=== PATIENT | male | born 1980 | race Caucasian/White ===

== ENCOUNTER 2016-07-03 20:09 | Emergency (ER) | payer OTHER ==
[~2016-07-03] VITALS: Ht 180.3 cm; Wt 98.0 kg
[~2016-07-03 20:09] MED LIST: EFF/375 PO; FURO-85 PO; MULT-220 PO
[2016-07-03 20:18] VITALS: Ht 180.3 cm; Wt 98.0 kg
[2016-07-03 21:47] LABS: HEMATOCRIT 42.7 % (42-52); MEAN CELL VOLUME 80.6 fL (80-100); MEAN CORPUSCULAR HEMOGLOBIN 29.1 pg (25-34); MEAN CORPUSCULAR HGB CONC 36.1 g/dl (32-36); MEAN PLATELET VOLUME 9.7 fL (7.4-10.4); PLATELET COUNT 273 K/uL (130-400); WHITE BLOOD COUNT 10.09 K/uL (4.8-10.8)
[2016-07-03 22:06] LABS: ALT/SGPT 51 U/L (12-78); BLOOD UREA NITROGEN 18 mg/dl (7-18); BUN/CREATININE RATIO 21.3 (10-20); CARBON DIOXIDE 26 mmol/L (21-32); CHLORIDE 105 mmol/L (98-107); CREATININE 0.84 mg/dl (0.60-1.40); GLUCOSE 91 mg/dl (70-99); POTASSIUM 3.9 mmol/L (3.5-5.1); SODIUM 140 mmol/L (136-145)
[2016-07-03 22:08] LABS: ACETAMINOPHEN < 2 ug/ml (10-30)
[2016-07-03] MEDS ORDERED: VENL150C56 PO (22:08)
[2016-07-03] MEDS ORDERED: FAMO20TA11 PO (22:08)
[2016-07-03] MEDS ORDERED: EFFSR75 PO (22:08)
[2016-07-03] MEDS ORDERED: LAMO25TA PO (22:08)
[2016-07-03 22:09] LABS: ALKALINE PHOSPHATASE 75 U/L (45-117); AST/SGOT 26 U/L (15-37)
--- NOTE | 2016-07-03 22:54 | EMERGENCY ROOM VISIT NOTE ---
History Report prepared by Mook: Brooklynn Tay Under the Supervision of: Dr. Lazarus Peacock M.D. First contact with patient: 20:51 Chief Complaint: MENTAL HEALTH EVALUATION Stated Complaint: MENTAL HEALTH EVAL History of Present Illness The patient is a 35 year old male who presents to the Emergency Room for a mental health evaluation for constant suicidal thoughts beginning 10 days ago. Per nursing staff the patient was accepted at the [facility] and they do not need medical clearance. She states that they were not able to arrange transport so he has arrived here for transport to the [facility]. The patient states that he has been having suicidal thoughts for the last 10 days. He reports that the holidays trigger this and his plan was to take his bottle of Trazodone pills, walk out in front of traffic, or slit his wrists. His family and his niece is the reason that he is trying to get help. He reports that he has been hospitalized for suicidal thoughts and depression 1 year ago after he got brain surgery around [facility]. He notes that he had a paternity test that came back negative a while ago and things have been hard since then. The patient states that he does not drink or do drugs. The patient denies any fever. He notes that he has hydrocephalus that was treated. Source of History: patient Onset: 10 days ago Position: other (mental health ) Quality: other (suicidal thoughts) Timing: constant Modifying Factors (Worsening): other (holidays) Associated Symptoms: No fevers Review of Systems See HPI for pertinent positives & negatives. A total of 10 systems reviewed and were otherwise negative. Past Medical & Surgical Medical Problems: (1) Cholecystitis (2) Hydrocephalus Family History No pertinent family history stated. Social History Smoking Status: Current Every Day Smoker Alcohol Use: none Drug Use: none Marital Status: single Housing Status: lives with family Occupation Status: employed Current/Historical Medications Scheduled Famotidine (Pepcid), 2 TAB PO BID Lamotrigine (Lamictal), 3 TAB PO BID Multiple Vitamins W/ Minerals (Multi For Him), 1 TAB PO DAILY Venlafaxine Hcl (Effexor Extended Rel), 75 MG PO QAM Venlafaxine Hcl (Effexor Extended Rel), 150 MG PO QAM Allergies Coded Allergies: No Known Allergies (Unverified , 07/03/16) Physical Exam Vital Signs Date Time Temp Pulse Resp B/P Pulse Ox O2 Delivery O2 Flow Rate FiO2 07/03/16 20:30 89 20 155/89 98 07/03/16 20:18 89 20 155/89 98 Room Air Physical Exam Constitutional: Vital signs reviewed. Eyes: Pupils are equal round reactive to light. Conjunctiva are noninjected. ENT: Pharynx is clear without erythema or exudate. Mucous membranes are moist. Neck supple without meningeal signs. Respiratory: Clear to auscultation bilaterally. Breath sounds are equal bilaterally. Cardiovascular: Regular rate and rhythm. No rubs or gallops. GI: Soft, nondistended and nontender. Bowel sounds are present. Musculoskeletal: No peripheral edema. No lacerations to the wrist. Integumentary: No cyanosis. Neurological: The patient is awake and alert. No focal deficits. Psychiatric: Depressed affect. Medical Decision & Procedures Laboratory Results 07/03/16 21:35 07/03/16 21:35 Test 07/03/16 21:35 Red Blood Count 5.30 M/uL (4.7-6.1) Mean Corpuscular Volume 80.6 fL (80-100) Mean Corpuscular Hemoglobin 29.1 pg (25-34) Mean Corpuscular Hemoglobin Concent 36.1 g/dl (32-36) RDW Standard Deviation 39.1 fL (36.4-46.3) RDW Coefficient of Variation 13.3 % (11.5-14.5) Mean Platelet Volume 9.7 fL (7.4-10.4) Anion Gap 9.0 mmol/L (3-11) Est Creatinine Clear Calc Drug Dose 147.8 ml/min Estimated GFR () 132.4 Estimated GFR (Non- 114.2 BUN/Creatinine Ratio 21.3 (10-20) Calcium Level 9.0 mg/dl (8.5-10.1) Total Bilirubin 0.3 mg/dl (0.2-1) Direct Bilirubin < 0.1 mg/dl (0-0.2) Aspartate Amino Transf (AST/SGOT) 26 U/L (15-37) Alanine Aminotransferase (ALT/SGPT) 51 U/L (12-78) Alkaline Phosphatase 75 U/L (45-117) Total Protein 7.3 gm/dl (6.4-8.2) Albumin 3.9 gm/dl (3.4-5.0) Salicylates Level 2.1 mg/dl (2.8-20) Acetaminophen Level < 2 ug/ml (10-30) Ethyl Alcohol mg/dL < 3.0 mg/dl (0-3) Laboratory results as reviewed by me. ED Course 2057: The patient was evaluated in room A7. A complete history and physical exam was performed. []: The patient will be transferred to [facility] for further management and treatment via ALS. Medical Decision This is a 35-year-old male who presents with suicidal ideation. I did perform a limited focused review of portions of the patient's old chart on the electronic medical record. The patient has had no recent pertinent visits to this hospital. I did evaluate the patient as noted above. He is presenting with suicidal ideation. He also has several plans. The holidays were a stressor for him. I did order and review the patient's blood work as noted in the electronic medical record. I did medically clear the patient. He was transferred to the [facility] inpatient facility. Impression Primary Impression: Mood disorder Additional Impression: Suicidal ideation Scribe Attestation The scribe's documentation has been prepared under my direct and personally reviewed by me in its entirety. I confirm that the note above accurately reflects all work, treatment, procedures, and medical decision making performed by me. Departure Information Dispostion Mental Health Acute Care Referrals Jan Dumont D.O. (PCP) Patient Instructions A Signature Page, My [facility]
[2016-07-03 23:15] VITALS: BP 135/92; PULSE 107; O2SAT 96
== END 2016-07-03 23:15 ==
LOC: EDBD 20:09 → C.EDA 20:12
DX: F39 Unspecified mood [affective] disorder (principal); R45.851 Suicidal ideations; F17.210 Nicotine dependence, cigarettes, uncomplicated; Z79.899 Other long term (current) drug therapy